=== PATIENT | male | born 1990 | race Caucasian/White ===

== ENCOUNTER 2021-10-06 19:03 | Emergency (ER) | payer OTHER ==
[2021-10-06] MEDS ORDERED: Sulfameth/Trimethoprim DS 800-160mg TAB ONE (19:37)
== END 2021-10-06 20:15 | disposition home or self-care (01) ==
LOC: NAV ERS 19:03
DX: S90.822A Blister (nonthermal), left foot, initial encounter (principal); S60.511A Abrasion of right hand, initial encounter; L03.116 Cellulitis of left lower limb; E10.9 Type 1 diabetes mellitus without complications; F17.210 Nicotine dependence, cigarettes, uncomplicated; W45.0XXA Nail entering through skin, initial encounter; Z79.899 Other long term (current) drug therapy
CPT/HCPCS: 36416; 99284